=== PATIENT | male | born 1995 | race Caucasian/White ===

== ENCOUNTER → 2024-12-07 17:02 | Outpatient (REF) | payer BC, SELFPAY | LOC: RAD 17:02 | PROVIDERS: ATTENDING PHYSICIAN Surgery; FAMILY PHYSICIAN Family Medicine | DX: K43.9 Ventral hernia without obstruction or gangrene (principal) | CPT/HCPCS: 74177; Q9967 ==

== ENCOUNTER → 2025-01-04 16:21 | Outpatient (REF) | payer BC, SELFPAY | LOC: RAD 16:21 | PROVIDERS: ATTENDING PHYSICIAN Family Medicine | DX: D30.3 Benign neoplasm of bladder (principal); K76.89 Other specified diseases of liver | CPT/HCPCS: 76700; 76857 ==